=== PATIENT | female | born 1970 | race Caucasian/White ===

== ENCOUNTER 2017-11-05 17:36 | Emergency (ER) | payer MEDICARE, MEDICAID ==
[~2017-11-05] VITALS: Ht 170.2 cm; Wt 117.9 kg
[~2017-11-05 17:36] MED LIST: ABILIFY 5 MG TAB5 MG PO; AUGMENTIN 875-1 EACH PO; CHLORTHALIDONE25 MG PO; CLEOCIN HCL300 MG PO; DULOXETINE HCL60 MG PO; GLUCOTROL5 MG PO; HYDROCODONE-AP1 EAC6 PO; IBUPROFEN 800800 M1 PO; KLONOPIN1 MG PO; LEVOTHYROXINE0.05 MG PO; NEXIUM40 MG PO; NORCO 10-325 T1 EACH; NORTRIPTYLINE H10 M1 GT; OXYCODONE HCL 55 MG; PERCOCET 5-3251 EACH PO; PERCOCET PO; REPLAX PO; TOPAMAX 100 MG100 MG PO; TRILEPTAL600 MG PO; VOLTAREN GEL 1100 G2 TOP; WELLBUTRIN XL300 MG PO
[2017-11-05] MEDS ORDERED: MAXZIDE-25 MG1 EACH PO (17:52)
[2017-11-05] MEDS ORDERED: SUMATRIPTAN20 MG INH (17:53)
[2017-11-05] MEDS ORDERED: ULTRAM 50MG TAB50 MG PO (17:55)
[2017-11-05] MEDS ORDERED: ONDANSETRON HCL4 M2 PO (17:55)
[2017-11-05] MEDS ORDERED: MELATONIN5 M1 PO (17:56)
[2017-11-05] MEDS ORDERED: ZANAFLEX4 M1 PO (17:56)
[2017-11-05] MEDS ORDERED: COMPAZINE10 MG PO (18:09)
[2017-11-05 18:15] LABS: ABSOLUTE BASOPHILS 0.1 thou/uL (0.0-0.2); ABSOLUTE EOSINOPHILS 0.2 thou/uL (0.0-0.7); ABSOLUTE LYMPHOCYTES 2.7 thou/uL (0.8-5.3); ABSOLUTE MONOCYTES 0.5 thou/uL (0.0-1.2); ABSOLUTE NEUTROPHILS 6.3 thou/uL (1.6-8.1); BASOPHILS 0.8 %; EOSINOPHILS 1.8 %; HEMATOCRIT 40.4 % (37.0-47.0); HEMOGLOBIN 13.5 gm/dL (12.0-15.0); LYMPHOCYTES 27.6 %; MCH 29.1 pg (26.0-34.0); MCHC 33.3 g/dL (28.0-37.0); MCV 87.5 fL (80.0-100.0); MPV 7.4 fl. (7.2-11.1); NUCLEATED RBCS 0 /100WBC; PLATELET COUNT* 293 thou/uL (150-400); POLYS 64.8 %; RBC 4.62 mil/uL (4.20-5.00); RDW-CV 13.6 % (10.5-14.5); WBC 9.7 thou/uL (4.0-11.0)
[2017-11-05 18:25] LABS: CALCIUM 9.2 mg/dL (8.5-10.1); CREATININE 0.9 mg/dL (0.6-1.3)
[2017-11-05 18:30] LABS: ALBUMIN 3.1 g/dL (3.4-5.0); TOTAL BILIRUBIN 0.1 mg/dL (<0.1-1.0)
[2017-11-05 19:16] LABS: ESR (SEDRATE) 35 mm/hr (0-20)
[2017-11-05] MEDS ORDERED: FLONASE 0.05%50 MCG NASAL (19:23)
[2017-11-05 19:34] VITALS: BP 106/62
== END 2017-11-05 19:34 | disposition home or self-care (01) ==
LOC: M.ERS 17:36
PROVIDERS: Nurse Practitioner Family
DX: R51 Headache (principal); R42 Dizziness and giddiness; Z85.3 Personal history of malignant neoplasm of breast; E11.9 Type 2 diabetes mellitus without complications; M79.7 Fibromyalgia; F17.200 Nicotine dependence, unspecified, uncomplicated; Z88.8 Allergy status to other drugs, medicaments and biological substances; Z88.1 Allergy status to other antibiotic agents

== ENCOUNTER 2019-09-24 18:15 | Inpatient (IN) | payer MEDICARE, MEDICAID ==
[~2019-09-24] VITALS: Ht 170.2 cm; Wt 119.9 kg
--- NOTE | ~2019-09-24 | OP ---
[facility] [address] [place] [address] OPERATIVE REPORT Name: LENARD LAKE Room: [address] IN M.R.#: [id number] Admission: 09/24/19 Attend Phys: Randall Mccray Discharge: Date of : 68 Report #: [id number] THIS REPORT FOR: //name// cc: SHAUN - Family physician unknown FAM - Family physician unknown ~ THIS REPORT FOR: //name// CC: SHAUN unknown Randall Mccray DATE OF SERVICE: 09/25/2019 PREOPERATIVE DIAGNOSIS: Right arm necrotic ulceration due to spider bite, 4 x 4 cm. POSTOPERATIVE DIAGNOSIS: Right arm necrotic ulceration due to spider bite, 4 x 4 cm. OPERATION: Excisional debridement of right arm eschar, 4 x 4 cm. SURGEON: Randall Mccray MD ANESTHESIA: General. ESTIMATED BLOOD LOSS: Minimal. DEPTH: Down through the muscle. DESCRIPTION OF PROCEDURE: After informed consent was obtained, the patient was brought to the operating room and placed supine. SCDs were placed and working, preoperative antibiotics were administered, general anesthesia was induced. The right arm was prepped and draped in a usual sterile fashion. This was an excisional debridement. Depth was down through the muscle. A 100% of the wound was debrided. Post-debridement wound area was 4 x 4 x 0.2 cm. I used the cautery to excise the tissue down through the muscle. Cautery dissection was made down through the subcutaneous tissue into the healthy fat and then down through some of the muscle. Some of the tissue was sent for culture and pathology. Sterile dressings were applied with packing and sterile gauze. COMPLICATIONS: None. [facility] [address] [place] [address] OPERATIVE REPORT Name: LENARD LAKE Room: [address] ..#: [id number] Admission: 09/24/19 Attend Phys: Randall Mccray Discharge: Date of : 68 Report #: [id number] DISPOSITION: The patient was taken to recovery in satisfactory condition. By: 1405 1423Randall Mccray MD /jose francisco
[~2019-09-24 18:15] MED LIST changes: +COMPAZINE10 MG PO; +FLONASE 0.05%50 MCG NASAL; +MAXZIDE-25 MG1 EACH PO; +MELATONIN5 M1 PO; +ONDANSETRON HCL4 M2 PO; +SUMATRIPTAN20 MG INH; +ULTRAM 50MG TAB50 MG PO; +ZANAFLEX4 M1 PO
[2019-09-24 18:31] VITALS: BP 144/102
[2019-09-24] MEDS ORDERED: VERAPAMIL ER180 M1 PO (18:40)
[2019-09-24] MEDS ORDERED: NEURONTIN 300M300 M2 PO (18:41)
[2019-09-24] MEDS ORDERED: EMGALITY120 MG/1 M SUBQ (18:42)
[2019-09-24] MEDS ORDERED: BIOTIN800 MCG PO (18:43)
[2019-09-24] MEDS ORDERED: SEROQUEL 100 M100 M1 PO (18:44)
[2019-09-24] MEDS ORDERED: ACYCLOVIR 400400 MG PO (18:44)
[2019-09-24] MEDS ORDERED: BENTYL 10 MG CA10 M1 PO (18:44)
[2019-09-24 19:23] LABS: ABSOLUTE BASOPHILS 0.1 thou/uL (0.0-0.2); ABSOLUTE EOSINOPHILS 0.3 thou/uL (0.0-0.7); ABSOLUTE LYMPHOCYTES 3.1 thou/uL (0.8-5.3); ABSOLUTE MONOCYTES 0.6 thou/uL (0.0-1.2); ABSOLUTE NEUTROPHILS 4.6 thou/uL (1.6-8.1); BASOPHILS 0.9 %; EOSINOPHILS 3.1 %; HEMATOCRIT 35.4 % (37.0-47.0); LYMPHOCYTES 35.5 %; MCH 29.6 pg (26.0-34.0); MCHC 33.8 g/dL (28.0-37.0); MCV 87.7 fL (80.0-100.0); MONOCYTES 7.1 %; MPV 7.6 fl. (7.2-11.1); NUCLEATED RBCS 0 /100WBC; PLATELET COUNT* 246 thou/uL (150-400); POLYS 53.4 %; RBC 4.04 mil/uL (4.20-5.00); RDW-CV 14.1 % (10.5-14.5); WBC 8.6 thou/uL (4.0-11.0)
[2019-09-24 19:31] LABS: CALCIUM 8.2 mg/dL (8.5-10.1); POTASSIUM 3.6 mmol/L (3.5-5.1)
[2019-09-24 19:36] LABS: ALBUMIN 2.9 g/dL (3.4-5.0); TOTAL BILIRUBIN 0.1 mg/dL (<0.1-1.0); TOTAL PROTEIN 6.3 g/dL (6.4-8.2)
[2019-09-24 20:20] VITALS: BP 112/65
[2019-09-24 21:30] VITALS: BP 148/75
[2019-09-25 07:41] VITALS: BP 112/76
[2019-09-25 16:00] VITALS: BP 129/71
[2019-09-25 21:00] VITALS: BP 115/56
[2019-09-26] VITALS: BP 95/55
[2019-09-26 04:00] VITALS: BP 114/62
[2019-09-26 08:00] VITALS: BP 132/78
[2019-09-26] MEDS ORDERED: BACTRIM DS TAB1 EAC1 PO (13:18)
[2019-09-26 13:26] VITALS: BP 132/78
--- NOTE | 2019-09-28 11:08 | PATH ---
[address] [address] PATHOLOGY RPT PROCEDURE Name: ANAHI PERRY Room: [address] M.R.#: [id number] Admission: 09/24/19 Date of : 68 Discharge: 09/26/19 Report #: [id number] Path Case #: [id number] [facility] Accession Number: [id number] . 01 Material submitted: . arm - RIGHT UPPER ARM MASS. Modifiers: right, upper . 01 Clinical history: . Spider bite right upper arm . 02 Diagnosis: Right upper arm mass: - Benign skin with nonspecific ulceration and extensive acute inflammation and necrosis of soft tissues. . (SALLIE:mml; 09/27/2019) [facility] 09/27/2019 1629 Local . 02 Electronically signed: . Jacob Joyner MD, Pathologist NPI- [id number] . 01 Gross description: . The specimen is received in formalin, labeled "Anahi Perry, right upper arm mass". Received is an irregular excision of skin with attached underlying fibroadipose tissue measuring 3.4 x 2.6 x 1.7 cm in greatest dimensions. The epidermal surface displays a well-circumscribed, irregular in contour, crusted and light del cid to brown-like lesion measuring 1.7 x 1.6 cm. The underlying fibroadipose tissue is predominantly necrotic in appearance. The surgical margin is inked. The specimen is submitted representatively in cassette A1. (CAA; 09/26/2019) QAC/QAC 09/27/2019 1628 Local . 02 Pathologist provided ICD-10: L98.499, L08.9 . 02 CPT . 763649 Specimen Comment: A courtesy copy of this report has been sent to [phone] Specimen Comment: Report sent to Performed at: [address], [place] [id number] MD Danilo Templeton MD Phone: [phone] Performed at: 02 [facility] [address] [place], [place] [id number] [address] [address] PATHOLOGY RPT PROCEDURE Name: ANAHI PERRY Room: [address] M.R.#: [id number] Admission: 09/24/19 Date of : 68 Discharge: 09/26/19 Report #: [id number] Path Case #: [id number] MD Jacob Joyner MD Phone: [phone]
== END 2019-09-26 14:14 | disposition home or self-care (01) | DRG 908 ==
LOC: M.ERS 18:15 → M.TBA-ER 18:37 → M.3W 18:37
PROVIDERS: Family Medicine; ADMIT Surgery; ATTEND Surgery
DX: T63.304A Toxic effect of unspecified spider venom, undetermined, initial encounter (principal); Z68.41 Body mass index [BMI] 40.0-44.9, adult; E66.01 Morbid (severe) obesity due to excess calories; F17.210 Nicotine dependence, cigarettes, uncomplicated; E03.9 Hypothyroidism, unspecified; E11.9 Type 2 diabetes mellitus without complications; M79.7 Fibromyalgia; G47.33 Obstructive sleep apnea (adult) (pediatric); L98.499 Non-pressure chronic ulcer of skin of other sites with unspecified severity; J44.9 Chronic obstructive pulmonary disease, unspecified; G43.909 Migraine, unspecified, not intractable, without status migrainosus; Y92.89 Other specified places as the place of occurrence of the external cause; Z90.49 Acquired absence of other specified parts of digestive tract; Z85.3 Personal history of malignant neoplasm of breast; Z79.899 Other long term (current) drug therapy; Z88.1 Allergy status to other antibiotic agents; Z88.8 Allergy status to other drugs, medicaments and biological substances; Z99.81 Dependence on supplemental oxygen

== ENCOUNTER → 2019-10-01 | Outpatient (CLI) | payer MEDICARE, MEDICAID ==
[~2019-10-01] MED LIST changes: +ACYCLOVIR 400400 MG PO; +BACTRIM DS TAB1 EAC1 PO; +BENTYL 10 MG CA10 M1 PO; +BIOTIN800 MCG PO; +EMGALITY120 MG/1 M SUBQ; +HYDROCODON-ACE1 EAC7 PO; +NEURONTIN 300M300 M2 PO; +SEROQUEL 100 M100 M1 PO; +VERAPAMIL ER180 M1 PO
== END ==
LOC: M.WC 04:21
PROVIDERS: ATTEND Surgery
DX: T63.301A Toxic effect of unspecified spider venom, accidental (unintentional), initial encounter (principal); E11.40 Type 2 diabetes mellitus with diabetic neuropathy, unspecified; L84 Corns and callosities; J44.9 Chronic obstructive pulmonary disease, unspecified; I10 Essential (primary) hypertension; M81.0 Age-related osteoporosis without current pathological fracture; E07.9 Disorder of thyroid, unspecified; G43.909 Migraine, unspecified, not intractable, without status migrainosus; G47.30 Sleep apnea, unspecified; F31.9 Bipolar disorder, unspecified; F41.9 Anxiety disorder, unspecified; F17.200 Nicotine dependence, unspecified, uncomplicated; Z85.3 Personal history of malignant neoplasm of breast; Z96.653 Presence of artificial knee joint, bilateral; Y92.89 Other specified places as the place of occurrence of the external cause

== ENCOUNTER → 2019-10-02 | Outpatient (CLI) | payer MEDICARE, MEDICAID | LOC: M.WC 14:21 | PROVIDERS: ATTEND Surgery | DX: T63.301D Toxic effect of unspecified spider venom, accidental (unintentional), subsequent encounter (principal); E11.40 Type 2 diabetes mellitus with diabetic neuropathy, unspecified; E07.89 Other specified disorders of thyroid; G47.30 Sleep apnea, unspecified; G43.909 Migraine, unspecified, not intractable, without status migrainosus; I10 Essential (primary) hypertension; J44.9 Chronic obstructive pulmonary disease, unspecified; K21.9 Gastro-esophageal reflux disease without esophagitis; M81.0 Age-related osteoporosis without current pathological fracture; F17.200 Nicotine dependence, unspecified, uncomplicated; F41.9 Anxiety disorder, unspecified; F31.9 Bipolar disorder, unspecified; Z85.3 Personal history of malignant neoplasm of breast; Z96.653 Presence of artificial knee joint, bilateral ==

== ENCOUNTER → 2019-10-08 | Outpatient (CLI) | payer MEDICARE, MEDICAID | LOC: M.WC 06:27 | PROVIDERS: ATTEND Surgery | DX: T63.301D Toxic effect of unspecified spider venom, accidental (unintentional), subsequent encounter (principal); E11.622 Type 2 diabetes mellitus with other skin ulcer; L98.491 Non-pressure chronic ulcer of skin of other sites limited to breakdown of skin; E11.40 Type 2 diabetes mellitus with diabetic neuropathy, unspecified; E07.89 Other specified disorders of thyroid; I10 Essential (primary) hypertension; G43.909 Migraine, unspecified, not intractable, without status migrainosus; G47.30 Sleep apnea, unspecified; J44.9 Chronic obstructive pulmonary disease, unspecified; M81.0 Age-related osteoporosis without current pathological fracture; F31.9 Bipolar disorder, unspecified; F17.200 Nicotine dependence, unspecified, uncomplicated; Z85.3 Personal history of malignant neoplasm of breast; Z96.653 Presence of artificial knee joint, bilateral ==

== ENCOUNTER 2019-10-09 22:20 | Emergency (ER) | payer MEDICARE, MEDICAID ==
[~2019-10-09] VITALS: Ht 167.6 cm; Wt 117.9 kg
[~2019-10-09 22:20] MED LIST changes: -HYDROCODON-ACE1 EAC7 PO
[2019-10-09 23:36] LABS: ABSOLUTE BASOPHILS 0.1 thou/uL (0.0-0.2); ABSOLUTE EOSINOPHILS 0.2 thou/uL (0.0-0.7); ABSOLUTE LYMPHOCYTES 3.2 thou/uL (0.8-5.3); ABSOLUTE MONOCYTES 0.6 thou/uL (0.0-1.2); ABSOLUTE NEUTROPHILS 5.1 thou/uL (1.6-8.1); EOSINOPHILS 2.2 %; HEMOGLOBIN 12.7 gm/dL (12.0-15.0); LYMPHOCYTES 34.8 %; MCH 29.1 pg (26.0-34.0); MCHC 33.4 g/dL (28.0-37.0); MONOCYTES 6.9 %; MPV 7.7 fl. (7.2-11.1); NUCLEATED RBCS 0 /100WBC; PLATELET COUNT* 311 thou/uL (150-400); POLYS 55.1 %; RBC 4.37 mil/uL (4.20-5.00); WBC 9.2 thou/uL (4.0-11.0)
[2019-10-09 23:40] LABS: CALCIUM 8.9 mg/dL (8.5-10.1); CREATININE 0.8 mg/dL (0.6-1.3)
[2019-10-09 23:44] LABS: ALBUMIN 3.6 g/dL (3.4-5.0); MAGNESIUM 1.9 mg/dL (1.8-2.4); TOTAL BILIRUBIN 0.2 mg/dL (<0.1-1.0); TOTAL PROTEIN 7.3 g/dL (6.4-8.2)
[2019-10-09 23:52] LABS: POTASSIUM 2.5 mmol/L (3.5-5.1)
[2019-10-10 02:34] LABS: URINE BILIRUBIN NEGATIVE (Negative); URINE BLOOD NEGATIVE (Negative); URINE CLARITY CLEAR; URINE COLOR YELLOW; URINE GLUCOSE-RANDOM NEGATIVE (Negative); URINE KETONES NEGATIVE (Negative); URINE LEUKOCYTES-REFLEX NEGATIVE (Negative); URINE NITRITE-REFLEX NEGATIVE (Negative); URINE PROTEIN NEGATIVE (Negative); URINE SPECIFIC GRAVITY <= 1.005 (1.005-1.030); URINE UROBILINOGEN 0.2 E.U./dl (0.2-1.0)
[2019-10-10 02:38] LABS: AMP/METHAMP Negative (Negative); BARBITURATES Negative (Negative); BENZODIAZEPINES Negative (Negative); COCAINE Negative (Negative); METHADONE Negative (Negative); OPIATES Negative (Negative); PCP Negative (Negative); THC Negative (Negative)
[2019-10-10] MEDS ORDERED: HYDROCODON-ACE1 EAC7 PO (02:42)
[2019-10-10 02:56] VITALS: BP 121/67
--- NOTE | 2019-10-10 11:39 | EKG ---
[place] [address] ELECTROCARDIOGRAM REPORT Name: LENARD LAKE Room: [facility]#: [id number] Admission: 10/09/19 Attend Phys: Discharge: 10/10/19 Date of : 68 Date of Service: 10/10/19 0024 Report #: [id number] THIS REPORT FOR: //name// [facility] ED Test Date: 2019-10-10 Test Time: 00:24:04 Pat Name: LENARD LAKE Department: Room: Gender: F Vp Software Support: [facility] : 1970 Requested By: Chey Coleman Order Number: [id number] Sena MD: Mateus Brunner Measurements Intervals [place] Rate: 74 P: 59 [place]: 171 QRS: 14 QRSD: 118 T: 21 QT: 404 QTc: 449 Interpretive Statements Sinus rhythm Left ventricular hypertrophy Nonspecific T abnormalities, anterior leads Artifact in lead(s) II,III,aVR,aVL,aVF No previous ECG available for comparison Electronically Signed On 10-10-2019 11:38:49 CDT by Mateus Brunner [email or web address] <ELECTRONICALLY SIGNED> By: Mateus Brunner MD, [facility] 10/10/19 1138 0024 0024 Mateus Brunner MD, [facility] /EPI
== END 2019-10-10 02:56 | disposition still patient (30) ==
LOC: M.ERS 22:20
PROVIDERS: Personal Emergency Response Attendant
DX: L76.82 Other postprocedural complications of skin and subcutaneous tissue (principal); M79.7 Fibromyalgia; E11.9 Type 2 diabetes mellitus without complications; G40.909 Epilepsy, unspecified, not intractable, without status epilepticus; E03.9 Hypothyroidism, unspecified; Z88.1 Allergy status to other antibiotic agents; Z88.6 Allergy status to analgesic agent; Z88.8 Allergy status to other drugs, medicaments and biological substances; Z79.899 Other long term (current) drug therapy; Z98.890 Other specified postprocedural states; Z90.89 Acquired absence of other organs; Z85.3 Personal history of malignant neoplasm of breast

== ENCOUNTER 2019-10-15 10:26 | Emergency (ER) | payer MEDICARE, MEDICAID ==
[~2019-10-15] VITALS: Ht 170.2 cm; Wt 115.7 kg
[2019-10-15 10:52] LABS: ABSOLUTE BASOPHILS 0.1 thou/uL (0.0-0.2); ABSOLUTE EOSINOPHILS 0.3 thou/uL (0.0-0.7); ABSOLUTE LYMPHOCYTES 3.5 thou/uL (0.8-5.3); ABSOLUTE MONOCYTES 0.6 thou/uL (0.0-1.2); ABSOLUTE NEUTROPHILS 4.3 thou/uL (1.6-8.1); BASOPHILS 1.4 %; EOSINOPHILS 3.4 %; HEMOGLOBIN 12.5 gm/dL (12.0-15.0); LYMPHOCYTES 39.1 %; MCH 29.5 pg (26.0-34.0); MCHC 33.8 g/dL (28.0-37.0); MCV 87.2 fL (80.0-100.0); MONOCYTES 7.3 %; MPV 7.7 fl. (7.2-11.1); NUCLEATED RBCS 0 /100WBC; PLATELET COUNT* 277 thou/uL (150-400); POLYS 48.8 %; RBC 4.25 mil/uL (4.20-5.00); RDW-CV 14.3 % (10.5-14.5); WBC 8.8 thou/uL (4.0-11.0)
[2019-10-15 11:03] LABS: CALCIUM 8.8 mg/dL (8.5-10.1); CREATININE 0.9 mg/dL (0.6-1.3); POTASSIUM 3.5 mmol/L (3.5-5.1)
[2019-10-15 11:07] LABS: ALBUMIN 3.4 g/dL (3.4-5.0); MAGNESIUM 1.8 mg/dL (1.8-2.4); TOTAL BILIRUBIN 0.3 mg/dL (<0.1-1.0)
[2019-10-15 11:30] VITALS: BP 119/67
== END 2019-10-15 11:30 | disposition home or self-care (01) ==
LOC: M.ERS 10:26
PROVIDERS: Emergency Medicine Emergency Medical Services
DX: M79.10 Myalgia, unspecified site (principal); E11.9 Type 2 diabetes mellitus without complications; E03.9 Hypothyroidism, unspecified; G43.909 Migraine, unspecified, not intractable, without status migrainosus; G47.30 Sleep apnea, unspecified; Z90.49 Acquired absence of other specified parts of digestive tract; Z85.3 Personal history of malignant neoplasm of breast; Z90.12 Acquired absence of left breast and nipple; Z91.048 Other nonmedicinal substance allergy status; Z88.8 Allergy status to other drugs, medicaments and biological substances

== ENCOUNTER → 2019-10-15 | Outpatient (CLI) | payer MEDICARE, MEDICAID ==
[~2019-10-15] MED LIST changes: +HYDROCODON-ACE1 EAC7 PO
== END ==
LOC: M.WC 04:23
PROVIDERS: ATTEND Surgery
DX: T63.301D Toxic effect of unspecified spider venom, accidental (unintentional), subsequent encounter (principal); E11.40 Type 2 diabetes mellitus with diabetic neuropathy, unspecified; E07.89 Other specified disorders of thyroid; G43.909 Migraine, unspecified, not intractable, without status migrainosus; G47.30 Sleep apnea, unspecified; I10 Essential (primary) hypertension; J44.9 Chronic obstructive pulmonary disease, unspecified; M81.0 Age-related osteoporosis without current pathological fracture; F17.200 Nicotine dependence, unspecified, uncomplicated; F31.9 Bipolar disorder, unspecified; Z96.653 Presence of artificial knee joint, bilateral; Z85.3 Personal history of malignant neoplasm of breast

== ENCOUNTER 2019-12-08 01:12 | Emergency (ER) | payer MEDICARE, MEDICAID ==
[~2019-12-08] VITALS: Ht 170.2 cm; Wt 113.4 kg
[2019-12-08] MEDS ORDERED: MACROBID 100 M100 MG PO (01:31)
[2019-12-08 02:22] LABS: ABSOLUTE BASOPHILS 0.1 thou/uL (0.0-0.2); ABSOLUTE EOSINOPHILS 0.2 thou/uL (0.0-0.7); ABSOLUTE LYMPHOCYTES 2.1 thou/uL (0.8-5.3); ABSOLUTE MONOCYTES 0.7 thou/uL (0.0-1.2); ABSOLUTE NEUTROPHILS 6.8 thou/uL (1.6-8.1); BASOPHILS 0.6 %; EOSINOPHILS 1.5 %; HEMATOCRIT 34.2 % (37.0-47.0); HEMOGLOBIN 11.5 gm/dL (12.0-15.0); LYMPHOCYTES 21.5 %; MCH 29.7 pg (26.0-34.0); MCHC 33.7 g/dL (28.0-37.0); MCV 88.2 fL (80.0-100.0); MONOCYTES 7.2 %; MPV 7.8 fl. (7.2-11.1); NUCLEATED RBCS 0 /100WBC; PLATELET COUNT* 215 thou/uL (150-400); POLYS 69.2 %; RBC 3.88 mil/uL (4.20-5.00); RDW-CV 14.9 % (10.5-14.5); WBC 9.8 thou/uL (4.0-11.0)
[2019-12-08 02:33] LABS: CALCIUM 7.8 mg/dL (8.5-10.1); CREATININE 0.8 mg/dL (0.6-1.3); POTASSIUM 3.3 mmol/L (3.5-5.1)
[2019-12-08 02:38] LABS: ALBUMIN 2.7 g/dL (3.4-5.0); TOTAL BILIRUBIN 0.2 mg/dL (<0.1-1.0); TOTAL PROTEIN 6.1 g/dL (6.4-8.2)
[2019-12-08] MEDS ORDERED: AUGMENTIN 500-1 EACH PO (04:05)
[2019-12-08] MEDS ORDERED: OXYCODONE HCL 55 MG PO (04:05)
[2019-12-08 04:12] VITALS: BP 157/89
== END 2019-12-08 04:12 | disposition home or self-care (01) ==
LOC: M.ERS 01:12
PROVIDERS: Personal Emergency Response Attendant
DX: L03.113 Cellulitis of right upper limb (principal); E11.9 Type 2 diabetes mellitus without complications; E03.9 Hypothyroidism, unspecified; M79.7 Fibromyalgia; G43.909 Migraine, unspecified, not intractable, without status migrainosus; G47.30 Sleep apnea, unspecified; Z85.3 Personal history of malignant neoplasm of breast; Z90.12 Acquired absence of left breast and nipple; Z91.048 Other nonmedicinal substance allergy status; Z88.8 Allergy status to other drugs, medicaments and biological substances

== ENCOUNTER 2019-12-10 13:36 | Emergency (ER) | payer MEDICARE, MEDICAID ==
[~2019-12-10] VITALS: Ht 170.2 cm; Wt 113.4 kg
[~2019-12-10 13:36] MED LIST changes: +AUGMENTIN 500-1 EACH PO; +MACROBID 100 M100 MG PO; +OXYCODONE HCL 55 MG PO
[2019-12-10] MEDS ORDERED: NORCO 5-325 TA1 EAC2 PO (14:29)
[2019-12-10] MEDS ORDERED: BACTRIM DS TAB1 EAC1 PO (14:29)
[2019-12-10 14:59] VITALS: BP 117/80
== END 2019-12-10 15:00 | disposition home or self-care (01) ==
LOC: M.ERS 13:36
DX: L03.113 Cellulitis of right upper limb (principal); E11.9 Type 2 diabetes mellitus without complications; E03.9 Hypothyroidism, unspecified; M79.7 Fibromyalgia; G43.909 Migraine, unspecified, not intractable, without status migrainosus; G47.30 Sleep apnea, unspecified; F17.210 Nicotine dependence, cigarettes, uncomplicated; Z90.12 Acquired absence of left breast and nipple; Z85.3 Personal history of malignant neoplasm of breast; Z91.048 Other nonmedicinal substance allergy status; Z88.8 Allergy status to other drugs, medicaments and biological substances

== ENCOUNTER → 2019-12-14 | Day surgery (SDC) | payer MEDICARE, MEDICAID ==
[~2019-12-14] MED LIST changes: +LORCET 5-325 M1 EACH PO; +NORCO 5-325 TA1 EAC2 PO
--- NOTE | ~2019-12-14 | OP ---
[facility] [address] [place] [address] OPERATIVE REPORT Name: LENARD LAKE Room: [facility]#: [id number] Admission: 12/14/19 Attend Phys: Randall Mccray Discharge: Date of : 68 Report #: [id number] THIS REPORT FOR: //name// cc: Mirella Brennan MD, Pamela MD ~ CC: Randall Brennan DATE OF SERVICE: 12/14/2019 PREOPERATIVE DIAGNOSIS: Right arm animal bite with puncture. POSTOPERATIVE DIAGNOSIS: Right arm animal bite with puncture. OPERATION: Debridement of right arm wound, 4 x 4 cm. SURGEON: Randall Mccray MD. ANESTHESIA: General. ESTIMATED BLOOD LOSS: Minimal. SPECIMEN: Right arm wound. DESCRIPTION OF PROCEDURE: After informed consent was obtained, the patient was brought to the operating room and placed supine. SCDs were placed and working, preoperative antibiotics were administered, general anesthesia was induced. The right arm was then prepped and draped in the usual sterile fashion. This was in the right forearm on the volar surface. This was debridement. Depth was down through the muscle. 100% of the wound was debrided. Post-debridement wound area was 4 x 4 cm. I used the cautery to debride away the necrotic skin down to good healthy skin and fat and muscle. The wound bed was fair. There were no complications. The wound was then packed with sterile gauze and sterile dressings were applied. COMPLICATIONS: None. DISPOSITION: The patient was taken to recovery in satisfactory condition. By: 1404 1412Joarun Mccray MD /nt
--- NOTE | 2019-12-14 16:41 | EKG ---
[place] [address] ELECTROCARDIOGRAM REPORT Name: LENARD LAKE Room: [facility]#: [id number] Admission: 12/14/19 Attend Phys: Randall Schmidt Discharge: Date of : 68 Date of Service: 12/14/19 1237 Report #: [id number] THIS REPORT FOR: //name// [facility] Test Date: 2019-12-14 Test Time: 12:37:41 Pat Name: LENARD LAKE Department: Room: Gender: F Line Prep Cook: LUIS : 1970 Requested By: Kevin Yee Order Number: [id number] Sena MD: Ishmael Couch Measurements Intervals [place] Rate: 75 P: 3 [place]: 169 QRS: 6 QRSD: 105 T: 24 QT: 403 QTc: 451 Interpretive Statements Sinus rhythm Probable left ventricular hypertrophy Borderline T abnormalities, anterior leads Compared to ECG 10/10/2019 00:24:04 No significant changes Electronically Signed On 12-14-2019 16:41:10 CDT by Ishmael Couch [email or web address] <ELECTRONICALLY SIGNED> By: Ishmael Couch MD, [facility] 12/14/19 1641 1237 1237 Ishmael Couch MD, [facility] /EPI
--- NOTE | 2019-12-19 11:07 | PATH ---
[address] [place] [address] PATHOLOGY RPT PROCEDURE Name: ANAHI PERRY Room: [facility].#: [id number] Admission: 12/14/19 Date of : 68 Discharge: Report #: [id number] Path Case #: [id number] [facility] Accession Number: [id number] . 01 Material submitted: . forearm - RIGHT FOREARM WOUND. Modifiers: right . 01 Clinical history: . INFECTION INSECT BITE RIGHT ARM, SPIDER BITE . 02 Diagnosis: Right forearm wound: - Benign skin with nonspecific ulceration, extensive acute inflammation, necrosis, and scattered eosinophils, suggesting arthropod bite. . (SALLIE:mml; 12/18/2019) QL 12/18/2019 1729 Local . 02 Electronically signed: . Jacob Joyner MD, Pathologist NPI- [id number] . 01 Gross description: . Received in formalin labeled "Anahi Perry, right forearm wound" is an irregular excision of del cid-white skin and underlying soft tissue measuring 2.7 x 2.0 x 1.1 cm. The skin surface displays an ulcerated del cid-pink lesion measuring 1.2 x 1.0 cm. Upon sectioning, the lesion has a greatest third dimension of 0.8 cm. [employer] tissue is submitted in cassette A1. ([facility]; 12/14/2019) [facility] 12/14/20192058 [facility] . 02 Pathologist provided ICD-10: L98.499, L08.9 . 02 CPT . 747960 Specimen Comment: A courtesy copy of this report has been sent to [phone] Specimen Comment: [phone] Specimen Comment: Report sent to / Performed at: [address], [place] [id number] MD Danilo Templeton MD Phone: [phone] Performed at: 02 [facility] [address], [place], [place] [id number] MD Jacob Joyner MD Phone: [phone]
== END | disposition home or self-care (01) ==
LOC: M.SUR 05:19
PROVIDERS: ATTEND Surgery
DX: S40.861A Insect bite (nonvenomous) of right upper arm, initial encounter (principal); Z79.899 Other long term (current) drug therapy; Z98.890 Other specified postprocedural states; X58.XXXA Exposure to other specified factors, initial encounter; Y93.89 Activity, other specified; Y92.89 Other specified places as the place of occurrence of the external cause; Y99.8 Other external cause status

== ENCOUNTER 2020-03-08 17:20 | Emergency (ER) | payer MEDICARE, MEDICAID ==
[~2020-03-08] VITALS: Ht 170.2 cm; Wt 113.4 kg
[2020-03-08] MEDS ORDERED: MECLIZINE HCL25 M1 PO (17:34)
[2020-03-08 18:04] LABS: ABSOLUTE BASOPHILS 0.1 thou/uL (0.0-0.2); ABSOLUTE EOSINOPHILS 0.2 thou/uL (0.0-0.7); ABSOLUTE LYMPHOCYTES 2.1 thou/uL (0.8-5.3); ABSOLUTE MONOCYTES 0.5 thou/uL (0.0-1.2); ABSOLUTE NEUTROPHILS 6.4 thou/uL (1.6-8.1); BASOPHILS 0.6 %; EOSINOPHILS 2.2 %; HEMATOCRIT 36.2 % (37.0-47.0); HEMOGLOBIN 12.1 gm/dL (12.0-15.0); MCH 29.3 pg (26.0-34.0); MCHC 33.5 g/dL (28.0-37.0); MCV 87.6 fL (80.0-100.0); MONOCYTES 5.8 %; MPV 7.1 fl. (7.2-11.1); NUCLEATED RBCS 0 /100WBC; PLATELET COUNT* 244 thou/uL (150-400); POLYS 68.4 %; RBC 4.14 mil/uL (4.20-5.00); RDW-CV 14.7 % (10.5-14.5); WBC 9.3 thou/uL (4.0-11.0)
[2020-03-08 18:15] LABS: CALCIUM 8.1 mg/dL (8.5-10.1); CREATININE 0.7 mg/dL (0.6-1.3); POTASSIUM 3.5 mmol/L (3.5-5.1)
[2020-03-08 18:19] LABS: ALBUMIN 2.8 g/dL (3.4-5.0); TOTAL BILIRUBIN 0.2 mg/dL (<0.1-1.0); TOTAL PROTEIN 6.4 g/dL (6.4-8.2)
[2020-03-08] MEDS ORDERED: TRAMADOL 50 MG50 MG PO (18:44)
[2020-03-08 19:11] VITALS: BP 145/85
== END 2020-03-08 19:13 | disposition home or self-care (01) ==
LOC: M.ERS 17:20
PROVIDERS: Physician Assistant
DX: M79.672 Pain in left foot (principal); L73.2 Hidradenitis suppurativa; E11.9 Type 2 diabetes mellitus without complications; G43.909 Migraine, unspecified, not intractable, without status migrainosus; E03.9 Hypothyroidism, unspecified; Z79.899 Other long term (current) drug therapy; Z88.1 Allergy status to other antibiotic agents; Z88.6 Allergy status to analgesic agent; Z88.8 Allergy status to other drugs, medicaments and biological substances

== ENCOUNTER 2020-04-01 21:25 | Emergency (ER) | payer MEDICARE, MEDICAID ==
[~2020-04-01] VITALS: Ht 170.2 cm; Wt 113.4 kg
[~2020-04-01 21:25] MED LIST changes: +MECLIZINE HCL25 M1 PO; +TRAMADOL 50 MG50 MG PO
[2020-04-01] MEDS ORDERED: LEVO-T75 MCG PO (21:36)
[2020-04-01] MEDS ORDERED: OMEPRAZOLE 20 M20 M1 PO (21:37)
[2020-04-01] MEDS ORDERED: KEFLEX500 M1 PO (21:44)
[2020-04-01] MEDS ORDERED: NORCO 5-325 TA1 EAC2 PO (21:44)
[2020-04-01] MEDS ORDERED: PREDNISONE 20 M20 M1 PO (21:44)
[2020-04-01 21:57] VITALS: BP 132/75
== END 2020-04-01 21:57 | disposition home or self-care (01) ==
LOC: M.ERS 21:25
DX: M10.041 Idiopathic gout, right hand (principal); E11.9 Type 2 diabetes mellitus without complications; G47.30 Sleep apnea, unspecified; E03.9 Hypothyroidism, unspecified; G43.909 Migraine, unspecified, not intractable, without status migrainosus; Z88.6 Allergy status to analgesic agent; Z88.8 Allergy status to other drugs, medicaments and biological substances; Z85.3 Personal history of malignant neoplasm of breast

== ENCOUNTER 2020-04-11 21:10 | Emergency (ER) | payer MEDICARE, MEDICAID ==
[~2020-04-11] VITALS: Ht 162.6 cm; Wt 111.1 kg
--- NOTE | ~2020-04-11 | EMS ---
[address] [address] EMS Patient Care Report Name: ANAHI PERRY [id number] Admission: 04/11/20 Attend Phys: Discharge: 04/11/20 Date of : 68 Report #: [id number] THIS REPORT FOR: //name// Report Transmitted: 04/14/2020 10:21 EMS Care Summary [place] Incident [id number] @ 04/11/2020 20:38 Incident Location [address] [place] [address] Patient Anahi Perry Female, 49 Years 1970 Patient Address [address] [place] [address] Patient History Endocrine Condition - Other,Cancer, Unspecified,Chronic Obstructive Pulmonary Disease (COPD),Bipolar disorder, unspecified,Hypothyroidism, unspecified,Migraine, unspecified, intractable, without status migrainosus, Patient Allergies , Patient Medications Toprol, Chief Complaint Fever Disposition Transported No Lights/[place] Dispatch Reason Abdominal Pain/Problems Transported To [facility] Narrative [facility] dispatched to the above address for HTN and abdominal pain. [facility] responded immediately to the scene. Arrival to find the pt standing in the [address] [address] EMS Patient Care Report Name: ANAHI PERRY Room: [facility]#: [id number] Admission: 04/11/20 Attend Phys: Discharge: 04/11/20 Date of : 68 Report #: [id number] living room of her apartment. PT was alert to EMS presence, in no apparent distress, collecting items to go to hospital. The pt stated for the last few days she has felt body aches, R arm swelling. Today she expereicned HTN and a fever. The pt was very anxious and had sporadic movements during transport. PT c/o feeling anxiety. She stated she tried calling her doctor's office, but they did not answer. She stated 6 weeks ago she was diagnosed with gout in her R hand. PT stated she was unable to slow her breathing, unable to rest her legs or arms. She repeatedly removed her mask stating it made her anxious and unable to breath. Attempt to classroom technology coach the pt to calm her breathing unsuccessful. ALS Assessment performed; airway intact. Lung sounds clear, equal, bi lateral. Pulses palpable at radial, strong, regular. Skin pink, warm, dry. JOSÉ ANTONIO. GCS 15. Stroke scale negative. PT assisted to EMS cot via stand and pivot w/o complication. Four point seat belts applied. Vital signs obtained. Base contact. Pt transported to [facility] ED. PT signed consent of transport and billing. PT assisted to ED bed via stand and pivot w/o complication. Report given to RN, signature obtained. [facility] returned to service. EOR. Initial Vitals @20:57Pain: 11/18, @21:03Pain: 09/18, @20:55P: 110,R: 22,BP: 145/80, @21:03P: 100,R: 24,BP: 136/82, @20:55GCS: 15, @21:03GCS: 15, Assessments @20:46MENTAL:SKIN:HEENT:LUNG SOUNDS:ABDOMEN:PELVIS//GI:EXTREMITIES:PULSE:NEURO: Impression Acute abdomen Timeline 20:37,Call Received 20:37,Dispatch Notified 20:37,Psap Call 20:38,Dispatched 20:39,En Route 20:45,On Scene 20:46,At Patient 20:52,Depart Scene 20:55,BP: 145/80 M,PULSE: 110,RR: 22 R,SPO2: Ox,ETCO2: ,BG: ,PAIN: ,GCS: , 20:55,BP: / M,PULSE: ,RR: R,SPO2: Ox,ETCO2: ,BG: ,PAIN: ,GCS: 15, 20:57,BP: / M,PULSE: ,RR: R,SPO2: Ox,ETCO2: ,BG: ,PAIN: 8,GCS: , [place] [address] EMS Patient Care Report Name: ANAHI PERRY [id number] Admission: 04/11/20 Attend Phys: Discharge: 04/11/20 Date of : 68 Report #: [id number] 21:03,BP: 136/82 M,PULSE: 100,RR: 24 R,SPO2: Ox,ETCO2: ,BG: ,PAIN: ,GCS: , 21:03,BP: / M,PULSE: ,RR: R,SPO2: Ox,ETCO2: ,BG: ,PAIN: ,GCS: 15, 21:03,BP: / M,PULSE: ,RR: R,SPO2: Ox,ETCO2: ,BG: ,PAIN: 6,GCS: , 21:05,At Destination 21:13,Call Closed Disclaimer v1.1 Copyright 2020 [employer] This EMS Care Summary contains data elements from the applicable legal record (which may be displayed differently). It is designed to provide pertinent information for the following purposes: continuity of care, clinical quality, and state data reporting. The complete legal record is available to ED staff and administrators of the receiving hospital in [employer] Patient Tracker. All data is provided "as is."
[~2020-04-11 21:10] MED LIST changes: +KEFLEX500 M1 PO; +LEVO-T75 MCG PO; +OMEPRAZOLE 20 M20 M1 PO; +PREDNISONE 20 M20 M1 PO
[2020-04-11 21:58] VITALS: BP 109/74
== END 2020-04-11 21:58 | disposition left against medical advice (07) ==
LOC: M.ERS 21:10
DX: J06.9 Acute upper respiratory infection, unspecified (principal); E11.9 Type 2 diabetes mellitus without complications; G43.909 Migraine, unspecified, not intractable, without status migrainosus; E03.9 Hypothyroidism, unspecified; F17.210 Nicotine dependence, cigarettes, uncomplicated; Z98.890 Other specified postprocedural states; Z90.49 Acquired absence of other specified parts of digestive tract; Z85.3 Personal history of malignant neoplasm of breast; Z79.899 Other long term (current) drug therapy; Z88.8 Allergy status to other drugs, medicaments and biological substances

== ENCOUNTER 2020-07-06 23:02 | Emergency (ER) | payer MEDICARE, MEDICAID ==
[~2020-07-06] VITALS: Ht 170.2 cm; Wt 113.4 kg
[2020-07-06] MEDS ORDERED: GABAPENTIN600 M1 PO (23:39)
[2020-07-06] MEDS ORDERED: OMEPRAZOLE40 MG PO (23:40)
[2020-07-06] MEDS ORDERED: OXCARBAZEPINE600 MG PO (23:42)
[2020-07-06] MEDS ORDERED: SEROQUEL200 MG PO (23:43)
[2020-07-06] MEDS ORDERED: IRON325 M1 PO (23:44)
[2020-07-06] MEDS ORDERED: BENADRYL25 MG PO (23:44)
[2020-07-06] MEDS ORDERED: CLONAZEPAM 0.50.5 M1 PO (23:45)
[2020-07-06] MEDS ORDERED: LIPITOR 10 MG10 M1 PO (23:45)
[2020-07-06] MEDS ORDERED: SINGULAIR 10 MG10 M1 PO (23:46)
[2020-07-06] MEDS ORDERED: FLEXERIL PO (23:46)
[2020-07-06] MEDS ORDERED: ACYCLOVIR 400400 MG PO (23:46)
[2020-07-06] MEDS ORDERED: TRAMADOL 50 MG50 MG PO (23:47)
[2020-07-06] MEDS ORDERED: REGLAN 10 MG TA10 MG PO (23:48)
[2020-07-07 00:16] LABS: CALCIUM 8.8 mg/dL (8.5-10.1)
[2020-07-07 00:19] LABS: POTASSIUM 2.8 mmol/L (3.5-5.1)
[2020-07-07 00:20] LABS: ALBUMIN 3.4 g/dL (3.4-5.0); MAGNESIUM 1.9 mg/dL (1.8-2.4); TOTAL BILIRUBIN 0.3 mg/dL (<0.1-1.0); TOTAL PROTEIN 7.1 g/dL (6.4-8.2)
[2020-07-07 00:31] LABS: ABSOLUTE BASOPHILS 0.1 thou/uL (0.0-0.2); ABSOLUTE EOSINOPHILS 0.2 thou/uL (0.0-0.7); ABSOLUTE LYMPHOCYTES 2.9 thou/uL (0.8-5.3); ABSOLUTE MONOCYTES 0.8 thou/uL (0.0-1.2); BASOPHILS 0.6 %; EOSINOPHILS 1.7 %; HEMOGLOBIN 12.3 gm/dL (12.0-15.0); LYMPHOCYTES 26.2 %; MCH 28.6 pg (26.0-34.0); MCHC 33.3 g/dL (28.0-37.0); MCV 85.9 fL (80.0-100.0); MONOCYTES 7.6 %; MPV 7.4 fl. (7.2-11.1); NUCLEATED RBCS 0 /100WBC; PLATELET COUNT* 318 thou/uL (150-400); POLYS 63.9 %; RBC 4.31 mil/uL (4.20-5.00); WBC 10.9 thou/uL (4.0-11.0)
[2020-07-07] MEDS ORDERED: HYDROCODON-ACE1 EAC8 PO (05:00)
[2020-07-07 05:30] VITALS: BP 140/83
[2020-07-07] MEDS ORDERED: CRUTCHES MISCELL (05:35)
--- NOTE | 2020-07-07 09:51 | EKG ---
[place] [address] ELECTROCARDIOGRAM REPORT Name: LENARD LAKE PAULINE Room: [facility]#: [id number] Admission: 07/06/20 Attend Phys: Discharge: 07/07/20 Date of : 68 Date of Service: 07/06/20 2333 Report #: [id number] THIS REPORT FOR: //name// [facility] ED Test Date: 2020-07-06 Test Time: 23:33:11 Pat Name: LENARD LAKE Department: Room: Gender: [employer] Assistant: EDUARDA : 1970 Requested By: Sol Schaeffer Order Number: [id number] MD: Mateus Brunner Measurements Intervals [place] Rate: 79 P: 31 [place]: 187 QRS: 10 QRSD: 113 T: 8 QT: 396 QTc: 455 Interpretive Statements Sinus rhythm Left atrial enlargement Borderline intraventricular conduction delay Borderline T wave abnormalities Baseline wander in lead(s) V1 Compared to ECG 12/14/2019 12:37:41 Atrial abnormality now present T-wave abnormality still present Electronically Signed On 07-07-2020 9:51:31 CDT by Mateus Brunner [email or web address] <ELECTRONICALLY SIGNED> By: Mateus Brunner MD, FACC 07/07/20 0951 2333 2333 Mateus Brunner MD, FAC /EPI
== END 2020-07-07 05:30 | disposition home or self-care (01) ==
LOC: M.ERS 23:02
PROVIDERS: Emergency Medicine
DX: S99.822A Other specified injuries of left foot, initial encounter (principal); E87.6 Hypokalemia; E11.9 Type 2 diabetes mellitus without complications; G43.909 Migraine, unspecified, not intractable, without status migrainosus; E03.9 Hypothyroidism, unspecified; G47.30 Sleep apnea, unspecified; Z88.6 Allergy status to analgesic agent; Z88.8 Allergy status to other drugs, medicaments and biological substances; Z85.3 Personal history of malignant neoplasm of breast; W18.39XA Other fall on same level, initial encounter; Y93.89 Activity, other specified; Y92.89 Other specified places as the place of occurrence of the external cause; Y99.8 Other external cause status

== ENCOUNTER 2020-11-07 19:16 | Emergency (ER) | payer MEDICARE, MEDICAID ==
[~2020-11-07] VITALS: Ht 170.2 cm; Wt 113.4 kg
[~2020-11-07 19:16] MED LIST changes: +BENADRYL25 MG PO; +CLONAZEPAM 0.50.5 M1 PO; +CRUTCHES MISCELL; +FLEXERIL PO; +GABAPENTIN600 M1 PO; +HYDROCODON-ACE1 EAC8 PO; +IRON325 M1 PO; +LIPITOR 10 MG10 M1 PO; +OMEPRAZOLE40 MG PO; +OXCARBAZEPINE600 MG PO; +REGLAN 10 MG TA10 MG PO; +SEROQUEL200 MG PO; +SINGULAIR 10 MG10 M1 PO
[2020-11-07 19:18] VITALS: BP 157/92
[2020-11-07] MEDS ORDERED: TRIAMTERENE-HC1 EAC1 PO (19:28)
== END 2020-11-07 23:10 | disposition left against medical advice (07) ==
LOC: M.ERS 19:16
DX: Z53.21 Procedure and treatment not carried out due to patient leaving prior to being seen by health care provider (principal)